=== PATIENT | female | born 1955 | race Caucasian/White ===

== ENCOUNTER 2019-04-30 14:26 | Inpatient (IN) | payer MEDICAID ==
[~2019-04-30] VITALS: Ht 165.1 cm; Wt 139.7 kg
[2019-04-30] MEDS ORDERED: ALBUTEROL SULF 2.5 MG/0.5ML(0.5%) NEB SOLN HHN ONE (16:00)
[2019-04-30] MEDS ORDERED: methylPREDNISolone SOD SUCC 125 MG/2 ML VL IV ONE (16:00)
[2019-04-30] MEDS ORDERED: IPRATROPIUM BROM 0.5 MG/2.5ML INH SOL HHN ONE (16:00)
[2019-04-30 16:43] LABS: Basophils # (auto) 0.1 uL; Basophils % (auto) 0.6 % (0.0-2.0); Eosinophils # (auto) 0.1 uL; Eosinophils % (auto) 0.8 % (0.0-7.0); Hematocrit 42.6 % (36.0-46.0); Hemoglobin 14.2 g/dL (12.2-16.2); Lymphocytes # (auto) 1.4 uL; Lymphocytes % (auto) 13.3 % (10.0-50.0); Mean Corpuscular Hemoglobin 28.7 pg (28.0-32.0); Mean Corpuscular Hgb Conc. 33.4 g/dL (32.0-36.0); Mean Corpuscular Volume 86.1 fL (80.0-100.0); Monocytes # (auto) 0.8 uL; Monocytes % (auto) 7.8 % (0.0-12.0); Neutrophils # (auto) 8.1 uL; Neutrophils % (auto) 77.5 % (37.0-80.0); Platelet Count (auto) 258 10^3/uL (140-450); Red Blood Cells 4.94 10^6/uL (4.0-5.20); Red Cell Distribution Width 15.5 % (11.8-14.3); White Blood Cell 10.4 10^3/uL (4.4-10.8)
[2019-04-30 17:02] LABS: Albumin 3.4 g/dL (3.4-5.0); Anion Gap 8 (5-15); Blood Urea Nitrogen 28 mg/dL (7-18); Calcium 8.8 mg/dL (8.5-10.1); Carbon Dioxide 29 mmol/L (21-32); Chloride 97 mmol/L (98-107); Potassium 4.3 mmol/L (3.5-5.1); Sodium 134 mmol/L (136-145)
[2019-04-30 17:08] LABS: Alanine Aminotransferase 30 U/L (13-56); Alkaline Phosphatase 113 U/L (45-117); Aspartate Aminotransferase 23 U/L (15-37); BUN/Creatinine Ratio 22.4; Bilirubin, Total 0.5 mg/dL (0.2-1.0); GFR African American 55 mL/min; GFR Non-African American 46 mL/min; Total Protein 7.4 g/dL (6.4-8.2)
[2019-04-30 17:21] LABS: Glucose 410 mg/dL (74-106)
[2019-04-30] MEDS ORDERED: TEMAZEPAM 15 MG CAP PO PRN (21:00)
[2019-04-30] MEDS ORDERED: cefTRIAXone 1GM/50ML D5W 50 ML IV ONE (21:00)
[2019-04-30] MEDS ORDERED: guaiFENesin-DM 100/10mg/5ml SYR PO PRN (21:00)
[2019-04-30] MEDS ORDERED: DEXTROSE (50%) 50ML SYRG IV PRN (21:00)
[2019-04-30] MEDS ORDERED: ONDANSETRON HCL 4 MG/2 ML VIAL IV PRN (21:00)
[2019-04-30] MEDS ORDERED: MORPHINE SULF INJ 2 MG/ML SYRINGE 1ML IV PRN (21:30)
[2019-04-30] MEDS ORDERED: NITROGLYCERIN 0.4 MG SL TAB SL PRN (21:30)
[2019-04-30] MEDS: ATORVASTATIN 20 MG TAB PO SCH (22:01)
[2019-04-30 23:15] VITALS: BP 137/70
--- NOTE | 2019-04-30 23:15 | NUR ---
Telemetry admit from [facility] admitted to Telemetry unit. Patient oriented to Edna Batista, primary RN, unit, room, bed, and unit policies regarding patient care. Patient now on continuous telemetry monitoring, tele box # [id number] and telemetry reading on arrival to unit is sinus tachycardia, HR of 104. Patient is on room air. Respirations even and unlabored. Patient has no S/S of SOB/distress or pain. Patient able to ambulate independently, steady gait. Patient encouraged to call if they need something. All questions and concerns addressed, patient verbalized understanding.
[2019-04-30 23:33] VITALS: BP 120/55
[2019-05-01] MEDS ORDERED: ALBUTEROL SULF 2.5 MG/0.5ML(0.5%) NEB SOLN NEB SCH
[2019-05-01] MEDS: InsuLIN REG 1unit/0.01ml Soln (100units/ml) SC SCH ×4 (00:07→17:27)
[2019-05-01] MEDS: ACCU-CHEK COMFORT CURVE STRIP VI SCH ×4 (00:07→17:22)
--- NOTE | 2019-05-01 00:50 | NUR ---
[facility] SWAB SENT.
--- NOTE | 2019-05-01 02:00 | NUR ---
HOSPITALIST PAGED REGARDING PATIENT REQUESTING 50 UNITS OF LANTUS IN THE MORNING AND AT NIGHT. PATIENT STATES SHE TAKES THIS AT HOME AND DOES NOT WANT HER BLOOD SUGAR TO GET HIGH. Addendum: 05/01/19 at 0306 by Edna Batista RN AWAITING CALLBACK.
--- NOTE | 2019-05-01 02:42 | NUR ---
CALLBACK RECEIVED FROM AGNES MAE. NO NEW ORDERS RECEIVED.
--- NOTE | 2019-05-01 04:12 | NUR ---
RAPID INFLUENZA A AND B SWAB SENT.
[2019-05-01] MEDS ORDERED: PNEUMOCOCCAL VACC POLYS 25 MCG/0.5 ML VIAL IM ONE (04:45)
[2019-05-01 05:00] VITALS: BP 112/46
[2019-05-01] MEDS ORDERED: LEVO750T64 PO (05:02)
[2019-05-01] MEDS ORDERED: GABA300C10 PO (05:02)
[2019-05-01] MEDS ORDERED: NORT25CA PO (05:02)
[2019-05-01] MEDS ORDERED: LEVO75TA6 PO (05:02)
[2019-05-01] MEDS ORDERED: LISI-285 PO (05:02)
[2019-05-01] MEDS ORDERED: SIMV10TA84 PO (05:02)
[2019-05-01 05:55] LABS: Basophils # (auto) 0 uL; Basophils % (auto) 0.2 % (0.0-2.0); Eosinophils # (auto) 0 uL; Hemoglobin 13.1 g/dL (12.2-16.2); Lymphocytes # (auto) 0.7 uL; Lymphocytes % (auto) 7.6 % (10.0-50.0); Mean Corpuscular Hemoglobin 28.2 pg (28.0-32.0); Mean Corpuscular Hgb Conc. 32.8 g/dL (32.0-36.0); Monocytes # (auto) 0.1 uL; Monocytes % (auto) 1.6 % (0.0-12.0); Neutrophils # (auto) 8.7 uL; Neutrophils % (auto) 90.6 % (37.0-80.0); Nucleated Red Blood Cells % 0.1 %; Platelet Count (auto) 214 10^3/uL (140-450); Red Blood Cells 4.65 10^6/uL (4.0-5.20); Red Cell Distribution Width 15.3 % (11.8-14.3); White Blood Cell 9.6 10^3/uL (4.4-10.8)
[2019-05-01] MEDS ORDERED: INSUINJ3 SC (05:59)
[2019-05-01] MEDS ORDERED: [UNRECOGNIZED DRUG - CODE] PO (05:59)
[2019-05-01] MEDS ORDERED: INSLANTI SC (05:59)
[2019-05-01 06:14] LABS: Calcium 8.9 mg/dL (8.5-10.1)
[2019-05-01] MEDS: LEVOTHYROXINE SODIUM 25 MCG TAB PO SCH (06:14)
[2019-05-01 06:17] LABS: BUN/Creatinine Ratio 22.5
[2019-05-01] MEDS: ACETAMINOPHEN 325 MG TAB PO PRN ×2 (06:25→11:44)
--- NOTE | 2019-05-01 07:00 | NUR ---
CLOSING NOTE Patient is on room air. Respirations even and unlabored. Patient has no S/S of SOB/distress.
[2019-05-01] MEDS ORDERED: INSREG3 IV (07:11)
[2019-05-01] MEDS ORDERED: ALBU2TAB4 INH (07:11)
[2019-05-01] MEDS ORDERED: BECLPOW12 IN (07:11)
[2019-05-01] MEDS ORDERED: CHOL20007 PO (07:11)
--- NOTE | 2019-05-01 07:40 | NUR ---
Opening Note Assumed pt care from [facility] nurse. Pt is a.ox4 with no s/s of distress or SOB. Pt is currently sitting at edge of bed eating breakfast with no complaints at this time. Pt is slightly wheezy and has a cough. Discussed POC wit pt; pt verbalized understanding. Safety measures maintained with call light within reach, bed in lowest position and side rails up. Will continue to monitor for changes q1hr and prn.
[2019-05-01] MEDS: IPRATROPIUM BROM 0.5 MG/2.5ML INH SOL NEB SCH ×4 (07:49→22:39)
[2019-05-01] MEDS: ALBUTEROL SULF 2.5 MG/0.5ML(0.5%) NEB SOLN NEB SCH ×4 (07:49→22:39)
[2019-05-01] MEDS: cefTRIAXone 1GM/50ML D5W 50 ML IV SCH (08:23)
[2019-05-01 09:00] VITALS: BP 130/61
[2019-05-01] MEDS: PANTOPRAZOLE 40 MG TAB PO SCH (09:36)
[2019-05-01] MEDS: LISINOPRIL 20 MG TAB PO SCH (09:36)
[2019-05-01] MEDS: HCTZ 25 MG TAB PO SCH (09:36)
[2019-05-01 13:00] VITALS: BP 119/70
--- NOTE | 2019-05-01 14:27 | NUR ---
Dr Moncada at Bedside MD to see pt. Requests that pt be allowed to show if she is sitting in shower, increase insulin sliding scale to aggressive, place pt on O2, as well as change breathing treatments to Q4. Orders read back and verified; will implement and follow through. Will continue to monitor.
[2019-05-01] MEDS ORDERED: DEXTROSE (50%) 50ML SYRG IV PRN (15:15)
[2019-05-01 17:35] VITALS: BP 136/70
[2019-05-01 20:05] VITALS: BP 147/59
--- NOTE | 2019-05-01 20:05 | NUR ---
Opening Shift Note Assumed care of patient, awake and alert. No S/S of distress/SOB or pain. Patient is on 2 liters of oxygen via nasal cannula. Respirations even and unlabored. Instructed on POC and to call for assist PRN, will continue to monitor for changes Q1hr and PRN.
[2019-05-01] MEDS: methylPREDNISolone SOD SUCC 40 MG/ML VL IV SCH (21:57)
[2019-05-01] MEDS: INSULIN LANTUS (GLARGINE) 1 /0.01ml (100units/ml) SC SCH (21:57)
[2019-05-01] MEDS: ATORVASTATIN 20 MG TAB PO SCH (21:57)
[2019-05-01 22:00] VITALS: BP 147/59
--- NOTE | 2019-05-01 23:40 | NUR ---
IV removal due to infiltration IV DC'd with clean sterile technique, catheter fully intact. Pressure dressing applied to site. Patient tolerated well.
--- NOTE | 2019-05-01 23:55 | NUR ---
IV insertion IV access obtained, via clean sterile technique by inserting 22 gauge catheter at left AC after 2 attempts. IV secured properly. No trauma to site. Patient tolerated well.
[2019-05-02] MEDS: ACCU-CHEK COMFORT CURVE STRIP VI SCH ×4 (00:28→18:02)
[2019-05-02] MEDS: InsuLIN REG 1unit/0.01ml Soln (100units/ml) SC SCH ×4 (00:28→18:03)
[2019-05-02 05:54] VITALS: BP 131/57
[2019-05-02] MEDS: ALBUTEROL SULF 2.5 MG/0.5ML(0.5%) NEB SOLN NEB SCH ×4 (06:20→20:04)
[2019-05-02] MEDS: IPRATROPIUM BROM 0.5 MG/2.5ML INH SOL NEB SCH ×4 (06:20→20:04)
[2019-05-02] MEDS: INSULIN LANTUS (GLARGINE) 1 /0.01ml (100units/ml) SC SCH ×2 (06:20→22:00)
[2019-05-02] MEDS: LEVOTHYROXINE SODIUM 25 MCG TAB PO SCH (06:20)
[2019-05-02] MEDS ORDERED: ASPI-404 PO (06:37)
--- NOTE | 2019-05-02 07:00 | NUR ---
CLOSING NOTE No S/S of distress/SOB or pain. Patient is on 2 liters of oxygen via nasal cannula. Respirations even and unlabored.
--- NOTE | 2019-05-02 08:15 | NUR ---
Opening Note Assumed care of patient, she is A & O x4, no s/s of distress. POC discussed. Bed is in lowest, locked position, call light within reach. Will continue to monitor Q1h and PRN .
[2019-05-02 09:00] VITALS: BP 123/50
[2019-05-02] MEDS: PANTOPRAZOLE 40 MG TAB PO SCH (10:22)
[2019-05-02] MEDS: cefTRIAXone 1GM/50ML D5W 50 ML IV SCH (10:22)
[2019-05-02] MEDS: LISINOPRIL 20 MG TAB PO SCH (10:23)
[2019-05-02] MEDS: HCTZ 25 MG TAB PO SCH (10:23)
[2019-05-02] MEDS: methylPREDNISolone SOD SUCC 40 MG/ML VL IV SCH ×2 (10:24→22:09)
[2019-05-02] MEDS: PROMETHAZINE W/CODEINE 5 ML ORAL SYRUP PO PRN (12:07)
[2019-05-02 13:00] VITALS: BP 114/55
[2019-05-02 17:00] VITALS: BP 123/74
--- NOTE | 2019-05-02 19:00 | NUR ---
Opening Shift Note Assumed care of patient, awake and alert. No S/S of distress/SOB or pain. Instructed on POC and to call for assist PRN, will continue to monitor for changes Q1hr and PRN.
[2019-05-02 22:00] VITALS: BP 129/53
[2019-05-02] MEDS: ATORVASTATIN 20 MG TAB PO SCH (22:10)
[2019-05-03] MEDS: IPRATROPIUM BROM 0.5 MG/2.5ML INH SOL NEB SCH ×3 (00:05→09:13)
[2019-05-03] MEDS: ALBUTEROL SULF 2.5 MG/0.5ML(0.5%) NEB SOLN NEB SCH ×3 (00:05→09:13)
[2019-05-03] MEDS: ACCU-CHEK COMFORT CURVE STRIP VI SCH ×3 (00:23→11:25)
[2019-05-03] MEDS: InsuLIN REG 1unit/0.01ml Soln (100units/ml) SC SCH ×3 (00:23→11:33)
[2019-05-03] MEDS: PROMETHAZINE W/CODEINE 5 ML ORAL SYRUP PO PRN ×2 (02:12→08:44)
[2019-05-03 05:00] VITALS: BP 139/59
[2019-05-03 06:05] LABS: Basophils # (auto) 0 uL; Basophils % (auto) 0.1 % (0.0-2.0); Eosinophils # (auto) 0 uL; Hematocrit 40.9 % (36.0-46.0); Hemoglobin 13.4 g/dL (12.2-16.2); Lymphocytes # (auto) 0.7 uL; Lymphocytes % (auto) 5.3 % (10.0-50.0); Mean Corpuscular Hemoglobin 28.1 pg (28.0-32.0); Mean Corpuscular Hgb Conc. 32.9 g/dL (32.0-36.0); Mean Corpuscular Volume 85.5 fL (80.0-100.0); Monocytes # (auto) 0.6 uL; Monocytes % (auto) 4.8 % (0.0-12.0); Neutrophils % (auto) 89.8 % (37.0-80.0); Nucleated Red Blood Cells % 0.1 %; Platelet Count (auto) 232 10^3/uL (140-450); Red Blood Cells 4.79 10^6/uL (4.0-5.20); Red Cell Distribution Width 15.6 % (11.8-14.3); White Blood Cell 12.3 10^3/uL (4.4-10.8)
[2019-05-03 06:22] LABS: Albumin 3.2 g/dL (3.4-5.0); Calcium 8.6 mg/dL (8.5-10.1); Potassium 4.2 mmol/L (3.5-5.1)
[2019-05-03 06:29] LABS: BUN/Creatinine Ratio 30.8; Bilirubin, Total 0.3 mg/dL (0.2-1.0)
[2019-05-03] MEDS: INSULIN LANTUS (GLARGINE) 1 /0.01ml (100units/ml) SC SCH (06:31)
[2019-05-03] MEDS: LEVOTHYROXINE SODIUM 25 MCG TAB PO SCH (06:41)
--- NOTE | 2019-05-03 07:22 | NUR ---
OPENING SHIFT NOTE Assumed care of patient from wood finisher RN. Patient is asleep in bed, no signs of distress notes. Patient is receiving oxygen at 2L/min via nasal cannula. Bed is locked, in the lowest position, side rails up x2 and call light is in reach. Will continue to monitor.
[2019-05-03] MEDS: cefTRIAXone 1GM/50ML D5W 50 ML IV SCH (08:44)
[2019-05-03 09:00] VITALS: BP 143/79
--- NOTE | 2019-05-03 09:13 | NUR ---
Respiratory note: SCHEDULED MED NEB TX NOT GIVEN. PATIENT STATED SHE DOES NOT NEED ONE AT THIS TIME. RN AT BEDSIDE. NO RESP DISTRESS NOTED. HR 81, RR 16, SPO2 95% ON ROOM AIR. BS ARE CLEAR.
[2019-05-03] MEDS: LISINOPRIL 20 MG TAB PO SCH (10:25)
[2019-05-03] MEDS: PANTOPRAZOLE 40 MG TAB PO SCH (10:25)
[2019-05-03] MEDS: HCTZ 25 MG TAB PO SCH (10:25)
--- NOTE | 2019-05-03 10:58 | NUR ---
IV removal IV DC'd with clean sterile technique, catheter fully intact. Pressure dressing applied to site. Patient tolerated well. IV insertion IV access obtained, via clean sterile technique by inserting 22 gauge catheter at right forearm after 4 attempts. IV secured properly. No trauma to site. Patient tolerated well.
[2019-05-03] MEDS: methylPREDNISolone SOD SUCC 40 MG/ML VL IV SCH (10:59)
[2019-05-03 13:00] VITALS: BP 142/64
[2019-05-03 13:31] VITALS: BP 142/64
--- NOTE | 2019-05-03 14:51 | NUR ---
DISCHARGE Discharge instructions given as ordered. Encourage to follow up with PMD as instructed. All questions and concerns addressed. Patient verbalized understanding. Medication reconciliation form completed and copy given to patient. Home medications held in Pharmacy returned to patient. IV removed with catheter intact, pressure dressing applied, Telemetry unit returned to ICU. Patient taken to vehicle via wheelchair with all personal belongings, accompanied by staff and family member. No distress noted at time of departure.
== END 2019-05-03 14:51 | disposition home or self-care (01) | DRG 133 ==
LOC: ER 14:26 → TELE 14:27 → TELE-WESTW 23:07
PROVIDERS: ADMIT Nurse Practitioner; ATTEND Internal Medicine
DX: J96.20 Acute and chronic respiratory failure, unspecified whether with hypoxia or hypercapnia (principal); E11.65 Type 2 diabetes mellitus with hyperglycemia; J45.901 Unspecified asthma with (acute) exacerbation; E66.01 Morbid (severe) obesity due to excess calories; E88.09 Other disorders of plasma-protein metabolism, not elsewhere classified; E03.9 Hypothyroidism, unspecified; I10 Essential (primary) hypertension; Z23 Encounter for immunization; Z91.19 Patient's noncompliance with other medical treatment and regimen; Z90.710 Acquired absence of both cervix and uterus; Z88.8 Allergy status to other drugs, medicaments and biological substances; Z68.43 Body mass index [BMI] 50.0-59.9, adult
CPT/HCPCS: 36415; 71046; 80048; 80053; 82962; 84484; 85025; 87081; 87804; 93005; 94640; 96365; 96375; G0378; J0696; J1815

== ENCOUNTER 2019-05-11 16:26 | Inpatient (IN) | payer MEDICAID ==
[~2019-05-11] VITALS: Ht 165.1 cm; Wt 137.2 kg
[~2019-05-11 16:26] MED LIST: ALBU2TAB4 INH; ASPI-404 PO; BECLPOW12 IN; CHOL20007 PO; GABA300C10 PO; INSLANTI SC; INSREG3 IV; LEVO750T64 PO; LEVO75TA6 PO; LISI-285 PO; NORT25CA PO; SIMV10TA84 PO; [UNRECOGNIZED DRUG - CODE] PO
[2019-05-11 17:27] LABS: Hematocrit 51.4 % (36.0-46.0); Hemoglobin 16.8 g/dL (12.2-16.2); Mean Corpuscular Hemoglobin 28.4 pg (28.0-32.0); Mean Corpuscular Hgb Conc. 32.8 g/dL (32.0-36.0); Mean Corpuscular Volume 86.6 fL (80.0-100.0); Platelet Count (auto) 263 10^3/uL (140-450); Red Blood Cells 5.93 10^6/uL (4.0-5.20); Red Cell Distribution Width 15.6 % (11.8-14.3); White Blood Cell 17.3 10^3/uL (4.4-10.8)
[2019-05-11 17:33] LABS: Basophils % (manual) 0 (0.0-2.0); Blast Cells 0; Metamyelocytes % 0; Myelocytes % 0; Promyelocytes % 0; Reactive Lymphocytes 0
[2019-05-11 17:39] LABS: INR 0.96 (0.9-1.15); Partial Thromboplastin Time 21.1 sec (23.64-32.05)
[2019-05-11 17:40] LABS: Albumin 3.4 g/dL (3.4-5.0); Calcium 9.5 mg/dL (8.5-10.1)
[2019-05-11 17:42] LABS: Band Neutrophils % (manual) 2; Eosinophils % (manual) 2 (0-7); Lymphocytes % (manual) 23 (10.0-50.0); Monocytes % (manual) 4 (0-12)
[2019-05-11 17:44] LABS: Lactic Acid w/Reflex 2.2 mmol/L (0.4-2.0)
[2019-05-11 17:44] LABS: BUN/Creatinine Ratio 20.1; Bilirubin, Total 0.6 mg/dL (0.2-1.0); Total Protein 7.5 g/dL (6.4-8.2)
[2019-05-11 17:46] LABS: Urine Bacteria NONE SEEN /hpf (None Seen); Urine Blood Negative /uL (Negative); Urine Hyaline Cast FEW /lpf (0 - 2); Urine Mucus FEW (None Seen); Urine Specific Gravity 1.025 (1.001-1.035); Urine WBC 1 /hpf (0 - 5)
[2019-05-11] MEDS ORDERED: VANCOMYCIN PER PHARMACY 1,000 MG IV SCH (19:00)
[2019-05-11] MEDS ORDERED: ACETAMINOPHEN 325 MG TAB PO PRN (19:00)
[2019-05-11] MEDS ORDERED: SODIUM CHLORIDE 0.9% 4,000 ML IV ONE (19:00)
[2019-05-11 19:57] LABS: Amylase 95 U/L (25-115); Lipase 873 U/L (73-393)
[2019-05-11] MEDS ORDERED: VANCOMYCIN 1GM/250ML 250 ML IV SCH (21:30)
[2019-05-11] MEDS: VANCOMYCIN 1GM/250ML 250 ML IV SCH (22:29)
[2019-05-11] MEDS ORDERED: ALBUTEROL SULF 2.5 MG/0.5ML(0.5%) NEB SOLN NEB ONE (23:15)
[2019-05-11] MEDS ORDERED: IPRATROPIUM BROM 0.5 MG/2.5ML INH SOL NEB ONE (23:15)
[2019-05-12] MEDS ORDERED: PIPERACILLIN-TAZOB 3.375GM 100 ML IV SCH
[2019-05-12] MEDS ORDERED: ACETAMINOPHEN 325 MG TAB PO PRN (00:45)
[2019-05-12] MEDS ORDERED: VANCOMYCIN PER PHARMACY 0 MG IV SCH (00:45)
[2019-05-12] MEDS ORDERED: DEXTROSE (50%) 50ML SYRG IV PRN ×2 (00:45→13:15)
[2019-05-12] MEDS ORDERED: MORPHINE SULF INJ 2 MG/ML SYRINGE 1ML IV PRN (01:00)
[2019-05-12] MEDS ORDERED: NITROGLYCERIN 0.4 MG SL TAB SL PRN (01:00)
[2019-05-12 01:14] VITALS: BP 104/60
[2019-05-12] MEDS: TEMAZEPAM 15 MG CAP PO PRN ×2 (01:18→21:15)
[2019-05-12] MEDS: SODIUM CHLORIDE 0.9% 1,000 ML IV SCH ×2 (02:52→13:15)
[2019-05-12] MEDS: ACCU-CHEK COMFORT CURVE STRIP VI SCH ×4 (06:00→22:19)
[2019-05-12] MEDS: IPRATROPIUM BROM 0.5 MG/2.5ML INH SOL NEB SCH ×4 (06:19→23:44)
[2019-05-12] MEDS: ALBUTEROL SULF 2.5 MG/0.5ML(0.5%) NEB SOLN NEB SCH ×4 (06:19→23:43)
[2019-05-12] MEDS: PIPERACILLIN-TAZOB 2.25GM 50 ML IV SCH ×3 (06:33→21:16)
[2019-05-12] MEDS: GABAPENTIN 300 MG CAP PO SCH ×3 (06:35→21:15)
[2019-05-12] MEDS: InsuLIN REG 1unit/0.01ml Soln (100units/ml) SC SCH ×4 (06:35→22:19)
[2019-05-12] MEDS: LEVOTHYROXINE SODIUM 25 MCG TAB PO SCH (06:36)
[2019-05-12 09:00] VITALS: BP 134/64
[2019-05-12] MEDS: VANCOMYCIN 1GM/250ML 250 ML IV SCH ×2 (09:59→22:19)
[2019-05-12] MEDS: ASPirin 81 mg TAB PO SCH (09:59)
[2019-05-12] MEDS: PANTOPRAZOLE 40 MG TAB PO SCH (10:00)
[2019-05-12 13:00] VITALS: BP 121/70
[2019-05-12 17:00] VITALS: BP 111/77
[2019-05-12] MEDS: ATORVASTATIN 20 MG TAB PO SCH (21:15)
[2019-05-12] MEDS: methylPREDNISolone SOD SUCC 40 MG/ML VL IV SCH (21:20)
[2019-05-12 22:00] VITALS: BP 121/64
[2019-05-12] MEDS: INSULIN LANTUS (GLARGINE) 1 /0.01ml (100units/ml) SC SCH (22:18)
[2019-05-13] MEDS: SODIUM CHLORIDE 0.9% 1,000 ML IV SCH (04:33)
[2019-05-13 05:00] VITALS: BP 117/68
[2019-05-13] MEDS: GABAPENTIN 300 MG CAP PO SCH ×3 (05:47→22:01)
[2019-05-13] MEDS: PIPERACILLIN-TAZOB 2.25GM 50 ML IV SCH (05:47)
[2019-05-13] MEDS: InsuLIN REG 1unit/0.01ml Soln (100units/ml) SC SCH ×3 (06:35→17:40)
[2019-05-13] MEDS: ACCU-CHEK COMFORT CURVE STRIP VI SCH ×4 (06:35→22:01)
[2019-05-13] MEDS: LEVOTHYROXINE SODIUM 25 MCG TAB PO SCH (06:36)
[2019-05-13] MEDS: IPRATROPIUM BROM 0.5 MG/2.5ML INH SOL NEB SCH ×4 (06:40→22:37)
[2019-05-13] MEDS: ALBUTEROL SULF 2.5 MG/0.5ML(0.5%) NEB SOLN NEB SCH ×4 (06:40→22:37)
[2019-05-13 06:41] LABS: Basophils # (auto) 0 uL; Basophils % (auto) 0.1 % (0.0-2.0); Eosinophils # (auto) 0 uL; Eosinophils % (auto) 0.1 % (0.0-7.0); Hematocrit 40.7 % (36.0-46.0); Hemoglobin 13.6 g/dL (12.2-16.2); Lymphocytes # (auto) 0.5 uL; Lymphocytes % (auto) 7.1 % (10.0-50.0); Mean Corpuscular Hemoglobin 28.9 pg (28.0-32.0); Mean Corpuscular Hgb Conc. 33.3 g/dL (32.0-36.0); Mean Corpuscular Volume 86.9 fL (80.0-100.0); Monocytes # (auto) 0.1 uL; Monocytes % (auto) 1.5 % (0.0-12.0); Neutrophils # (auto) 6.9 uL; Neutrophils % (auto) 91.2 % (37.0-80.0); Platelet Count (auto) 152 10^3/uL (140-450); Red Blood Cells 4.69 10^6/uL (4.0-5.20); Red Cell Distribution Width 15.7 % (11.8-14.3); White Blood Cell 7.6 10^3/uL (4.4-10.8)
[2019-05-13 07:05] LABS: Albumin 2.7 g/dL (3.4-5.0); Calcium 8.6 mg/dL (8.5-10.1); Potassium 5.2 mmol/L (3.5-5.1)
[2019-05-13 07:09] LABS: BUN/Creatinine Ratio 14.8; Bilirubin, Total 0.6 mg/dL (0.2-1.0); Total Protein 5.9 g/dL (6.4-8.2)
[2019-05-13 09:00] VITALS: BP 129/61
[2019-05-13] MEDS: methylPREDNISolone SOD SUCC 40 MG/ML VL IV SCH ×2 (09:14→22:00)
[2019-05-13] MEDS: INSULIN LANTUS (GLARGINE) 1 /0.01ml (100units/ml) SC SCH (09:15)
[2019-05-13] MEDS: PANTOPRAZOLE 40 MG TAB PO SCH (09:15)
[2019-05-13] MEDS: ASPirin 81 mg TAB PO SCH (09:15)
[2019-05-13] MEDS: VANCOMYCIN 1GM/250ML 250 ML IV SCH (09:15)
[2019-05-13] MEDS: PIPERACILLIN-TAZOB 3.375GM 100 ML IV SCH ×2 (12:00→17:39)
[2019-05-13 13:00] VITALS: BP 127/59
[2019-05-13 16:47] VITALS: BP 131/64
[2019-05-13] MEDS: BUDESONIDE (INHALATION) 0.5 MG/2 ML NEB NEB SCH (18:02)
[2019-05-13 21:41] VITALS: BP 111/74
[2019-05-13] MEDS: ATORVASTATIN 20 MG TAB PO SCH (22:01)
[2019-05-13] MEDS: TEMAZEPAM 15 MG CAP PO PRN (22:02)
[2019-05-14] VITALS (7 sets, daily range): BP systolic 96–134; BP diastolic 53–59
[2019-05-14] MEDS: InsuLIN REG 1unit/0.01ml Soln (100units/ml) SC SCH ×5 (03:28→22:31)
[2019-05-14] MEDS: INSULIN LANTUS (GLARGINE) 1 /0.01ml (100units/ml) SC SCH ×3 (03:28→22:30)
[2019-05-14] MEDS: PIPERACILLIN-TAZOB 3.375GM 100 ML IV SCH ×4 (03:29→18:19)
[2019-05-14] MEDS: ACCU-CHEK COMFORT CURVE STRIP VI SCH ×4 (05:36→22:31)
[2019-05-14] MEDS: GABAPENTIN 300 MG CAP PO SCH ×3 (05:58→22:30)
[2019-05-14] MEDS: LEVOTHYROXINE SODIUM 25 MCG TAB PO SCH (05:59)
[2019-05-14 06:02] LABS: Basophils # (auto) 0 uL; Basophils % (auto) 0.2 % (0.0-2.0); Eosinophils # (auto) 0 uL; Hematocrit 41.1 % (36.0-46.0); Hemoglobin 13.4 g/dL (12.2-16.2); Lymphocytes # (auto) 0.6 uL; Lymphocytes % (auto) 4.1 % (10.0-50.0); Mean Corpuscular Hemoglobin 28.7 pg (28.0-32.0); Mean Corpuscular Hgb Conc. 32.6 g/dL (32.0-36.0); Mean Corpuscular Volume 87.8 fL (80.0-100.0); Monocytes # (auto) 0.3 uL; Monocytes % (auto) 2.4 % (0.0-12.0); Neutrophils # (auto) 12.8 uL; Neutrophils % (auto) 93.3 % (37.0-80.0); Platelet Count (auto) 170 10^3/uL (140-450); Red Blood Cells 4.68 10^6/uL (4.0-5.20); Red Cell Distribution Width 16.1 % (11.8-14.3); White Blood Cell 13.7 10^3/uL (4.4-10.8)
[2019-05-14] MEDS: IPRATROPIUM BROM 0.5 MG/2.5ML INH SOL NEB SCH ×4 (06:13→23:59)
[2019-05-14] MEDS: BUDESONIDE (INHALATION) 0.5 MG/2 ML NEB NEB SCH ×2 (06:13→18:35)
[2019-05-14] MEDS: ALBUTEROL SULF 2.5 MG/0.5ML(0.5%) NEB SOLN NEB SCH ×4 (06:14→23:59)
[2019-05-14 06:45] LABS: Potassium 4.5 mmol/L (3.5-5.1)
[2019-05-14 07:07] LABS: Albumin 2.8 g/dL (3.4-5.0); BUN/Creatinine Ratio 16.8; Bilirubin, Total 0.6 mg/dL (0.2-1.0); Calcium 8.7 mg/dL (8.5-10.1); Total Protein 6.4 g/dL (6.4-8.2)
[2019-05-14] MEDS: methylPREDNISolone SOD SUCC 40 MG/ML VL IV SCH ×2 (09:16→22:30)
[2019-05-14] MEDS: PANTOPRAZOLE 40 MG TAB PO SCH (09:16)
[2019-05-14] MEDS: ASPirin 81 mg TAB PO SCH (09:16)
[2019-05-14] MEDS ORDERED: INSULIN LANTUS (GLARGINE) 1 /0.01ml (100units/ml) SC ONE (10:30)
[2019-05-14] MEDS: glipiZIDE 5 MG TAB PO SCH (18:18)
[2019-05-14] MEDS: ATORVASTATIN 20 MG TAB PO SCH (22:30)
[2019-05-15] MEDS: PIPERACILLIN-TAZOB 3.375GM 100 ML IV SCH ×5 (00:30→23:50)
[2019-05-15] MEDS: TEMAZEPAM 15 MG CAP PO PRN (00:30)
[2019-05-15 05:00] VITALS: BP 124/61
[2019-05-15 06:47] LABS: Albumin 2.8 g/dL (3.4-5.0); Calcium 8.6 mg/dL (8.5-10.1); Potassium 4.3 mmol/L (3.5-5.1)
[2019-05-15] MEDS: glipiZIDE 5 MG TAB PO SCH ×2 (06:50→18:15)
[2019-05-15] MEDS: GABAPENTIN 300 MG CAP PO SCH ×3 (06:50→21:58)
[2019-05-15] MEDS: LEVOTHYROXINE SODIUM 25 MCG TAB PO SCH (06:51)
[2019-05-15] MEDS: ACCU-CHEK COMFORT CURVE STRIP VI SCH ×4 (06:51→21:58)
[2019-05-15] MEDS: INSULIN LANTUS (GLARGINE) 1 /0.01ml (100units/ml) SC SCH ×2 (06:51→21:59)
[2019-05-15] MEDS: InsuLIN REG 1unit/0.01ml Soln (100units/ml) SC SCH ×4 (06:51→21:59)
[2019-05-15 06:52] LABS: Bilirubin, Total 0.5 mg/dL (0.2-1.0)
[2019-05-15] MEDS: ALBUTEROL SULF 2.5 MG/0.5ML(0.5%) NEB SOLN NEB SCH ×3 (07:07→19:47)
[2019-05-15] MEDS: IPRATROPIUM BROM 0.5 MG/2.5ML INH SOL NEB SCH ×3 (07:07→19:47)
[2019-05-15] MEDS: BUDESONIDE (INHALATION) 0.5 MG/2 ML NEB NEB SCH ×2 (07:08→19:47)
[2019-05-15 07:15] LABS: Basophils # (auto) 0 uL; Eosinophils # (auto) 0 uL; Hematocrit 38.6 % (36.0-46.0); Hemoglobin 12.7 g/dL (12.2-16.2); Lymphocytes # (auto) 0.8 uL; Lymphocytes % (auto) 5.5 % (10.0-50.0); Mean Corpuscular Hemoglobin 28.4 pg (28.0-32.0); Mean Corpuscular Hgb Conc. 32.9 g/dL (32.0-36.0); Mean Corpuscular Volume 86.4 fL (80.0-100.0); Monocytes # (auto) 0.6 uL; Neutrophils # (auto) 12.6 uL; Neutrophils % (auto) 90.5 % (37.0-80.0); Nucleated Red Blood Cells % 0.2 %; Platelet Count (auto) 158 10^3/uL (140-450); Red Blood Cells 4.47 10^6/uL (4.0-5.20); Red Cell Distribution Width 15.9 % (11.8-14.3); White Blood Cell 13.9 10^3/uL (4.4-10.8)
[2019-05-15 09:18] VITALS: BP 135/63
[2019-05-15] MEDS: methylPREDNISolone SOD SUCC 40 MG/ML VL IV SCH ×2 (10:25→21:58)
[2019-05-15] MEDS: ASPirin 81 mg TAB PO SCH (10:25)
[2019-05-15] MEDS: PANTOPRAZOLE 40 MG TAB PO SCH (10:25)
[2019-05-15 13:00] VITALS: BP 111/48
[2019-05-15 16:43] VITALS: BP 126/79
[2019-05-15 21:30] VITALS: BP 152/64
[2019-05-15] MEDS: ATORVASTATIN 20 MG TAB PO SCH (21:58)
[2019-05-16] MEDS: ALBUTEROL SULF 2.5 MG/0.5ML(0.5%) NEB SOLN NEB SCH ×5 (00:45→23:36)
[2019-05-16] MEDS: IPRATROPIUM BROM 0.5 MG/2.5ML INH SOL NEB SCH ×5 (00:45→23:36)
[2019-05-16] MEDS: TEMAZEPAM 15 MG CAP PO PRN (01:08)
[2019-05-16 05:41] VITALS: BP 119/56
[2019-05-16 06:06] LABS: Basophils # (auto) 0 uL; Basophils % (auto) 0.1 % (0.0-2.0); Eosinophils # (auto) 0 uL; Hematocrit 40.5 % (36.0-46.0); Hemoglobin 13.5 g/dL (12.2-16.2); Lymphocytes # (auto) 0.6 uL; Lymphocytes % (auto) 6.3 % (10.0-50.0); Mean Corpuscular Hemoglobin 29.2 pg (28.0-32.0); Mean Corpuscular Hgb Conc. 33.3 g/dL (32.0-36.0); Mean Corpuscular Volume 87.6 fL (80.0-100.0); Monocytes # (auto) 0.5 uL; Monocytes % (auto) 4.5 % (0.0-12.0); Neutrophils # (auto) 9.2 uL; Neutrophils % (auto) 89.1 % (37.0-80.0); Platelet Count (auto) 141 10^3/uL (140-450); Red Blood Cells 4.62 10^6/uL (4.0-5.20); Red Cell Distribution Width 16.1 % (11.8-14.3); White Blood Cell 10.3 10^3/uL (4.4-10.8)
[2019-05-16 06:20] LABS: Potassium 4.8 mmol/L (3.5-5.1)
[2019-05-16 06:29] LABS: Albumin 2.8 g/dL (3.4-5.0); BUN/Creatinine Ratio 20.2; Bilirubin, Total 0.5 mg/dL (0.2-1.0); Calcium 8.7 mg/dL (8.5-10.1); Total Protein 6.2 g/dL (6.4-8.2)
[2019-05-16] MEDS: PIPERACILLIN-TAZOB 3.375GM 100 ML IV SCH ×4 (06:33→23:23)
[2019-05-16] MEDS: GABAPENTIN 300 MG CAP PO SCH ×3 (06:33→21:35)
[2019-05-16] MEDS: LEVOTHYROXINE SODIUM 25 MCG TAB PO SCH (06:33)
[2019-05-16] MEDS: INSULIN LANTUS (GLARGINE) 1 /0.01ml (100units/ml) SC SCH ×2 (06:34→21:36)
[2019-05-16] MEDS: glipiZIDE 5 MG TAB PO SCH ×2 (06:34→17:46)
[2019-05-16] MEDS: InsuLIN REG 1unit/0.01ml Soln (100units/ml) SC SCH ×4 (06:34→21:35)
[2019-05-16] MEDS: ACCU-CHEK COMFORT CURVE STRIP VI SCH ×4 (06:34→21:36)
[2019-05-16] MEDS: BUDESONIDE (INHALATION) 0.5 MG/2 ML NEB NEB SCH ×2 (06:48→18:14)
[2019-05-16] MEDS: PANTOPRAZOLE 40 MG TAB PO SCH (09:35)
[2019-05-16] MEDS: methylPREDNISolone SOD SUCC 40 MG/ML VL IV SCH ×2 (09:35→21:34)
[2019-05-16] MEDS: ASPirin 81 mg TAB PO SCH (09:35)
[2019-05-16 09:39] VITALS: BP 145/75
[2019-05-16] MEDS: PROMETHAZINE W/CODEINE 5 ML ORAL SYRUP PO PRN (14:53)
[2019-05-16 14:54] VITALS: BP 146/68
[2019-05-16 16:45] VITALS: BP 108/62
[2019-05-16] MEDS: ATORVASTATIN 20 MG TAB PO SCH (21:35)
[2019-05-16 21:47] VITALS: BP 109/47
[2019-05-17] MEDS: TEMAZEPAM 15 MG CAP PO PRN
[2019-05-17] MEDS: PROMETHAZINE W/CODEINE 5 ML ORAL SYRUP PO PRN (04:34)
[2019-05-17 05:28] VITALS: BP 128/63
[2019-05-17] MEDS: GABAPENTIN 300 MG CAP PO SCH ×3 (05:32→21:59)
[2019-05-17] MEDS: PIPERACILLIN-TAZOB 3.375GM 100 ML IV SCH ×4 (05:32→23:35)
[2019-05-17] MEDS: INSULIN LANTUS (GLARGINE) 1 /0.01ml (100units/ml) SC SCH ×2 (05:41→22:00)
[2019-05-17] MEDS: ALBUTEROL SULF 2.5 MG/0.5ML(0.5%) NEB SOLN NEB SCH ×3 (06:10→19:15)
[2019-05-17] MEDS: IPRATROPIUM BROM 0.5 MG/2.5ML INH SOL NEB SCH ×3 (06:10→19:15)
[2019-05-17] MEDS: BUDESONIDE (INHALATION) 0.5 MG/2 ML NEB NEB SCH ×2 (06:10→19:15)
[2019-05-17] MEDS: ACCU-CHEK COMFORT CURVE STRIP VI SCH ×4 (06:29→22:00)
[2019-05-17] MEDS: InsuLIN REG 1unit/0.01ml Soln (100units/ml) SC SCH ×4 (06:29→22:01)
[2019-05-17] MEDS: glipiZIDE 5 MG TAB PO SCH ×2 (06:30→17:55)
[2019-05-17] MEDS: LEVOTHYROXINE SODIUM 25 MCG TAB PO SCH (06:30)
[2019-05-17 06:51] LABS: Calcium 8.4 mg/dL (8.5-10.1); Potassium 4.8 mmol/L (3.5-5.1)
[2019-05-17 06:54] LABS: BUN/Creatinine Ratio 19.9
[2019-05-17 09:00] VITALS: BP 126/62
[2019-05-17] MEDS: methylPREDNISolone SOD SUCC 40 MG/ML VL IV SCH ×2 (09:36→21:59)
[2019-05-17] MEDS: PANTOPRAZOLE 40 MG TAB PO SCH (09:36)
[2019-05-17] MEDS: ASPirin 81 mg TAB PO SCH (09:37)
[2019-05-17 13:00] VITALS: BP 116/65
[2019-05-17] MEDS ORDERED: MONTELUKAST SODIUM 10 MG TAB PO ONE (13:45)
[2019-05-17 17:00] VITALS: BP 121/57
[2019-05-17 21:20] VITALS: BP 121/57
[2019-05-17] MEDS: MONTELUKAST SODIUM 10 MG TAB PO SCH (21:59)
[2019-05-17 22:00] VITALS: BP 123/57
[2019-05-17] MEDS: ATORVASTATIN 20 MG TAB PO SCH (22:00)
[2019-05-18] MEDS: IPRATROPIUM BROM 0.5 MG/2.5ML INH SOL NEB SCH ×4 (00:10→18:56)
[2019-05-18] MEDS: ALBUTEROL SULF 2.5 MG/0.5ML(0.5%) NEB SOLN NEB SCH ×4 (00:10→18:56)
[2019-05-18] MEDS: PROMETHAZINE W/CODEINE 5 ML ORAL SYRUP PO PRN (00:30)
[2019-05-18] MEDS: TEMAZEPAM 15 MG CAP PO PRN (00:31)
[2019-05-18 05:15] LABS: Hemoglobin 13.3 g/dL (12.2-16.2); Mean Corpuscular Hemoglobin 28.9 pg (28.0-32.0); Mean Corpuscular Hgb Conc. 33.3 g/dL (32.0-36.0); Mean Corpuscular Volume 86.8 fL (80.0-100.0); Platelet Count (auto) 129 10^3/uL (140-450); Red Blood Cells 4.61 10^6/uL (4.0-5.20); White Blood Cell 10.1 10^3/uL (4.4-10.8)
[2019-05-18 05:32] LABS: Albumin 2.9 g/dL (3.4-5.0); Calcium 8.7 mg/dL (8.5-10.1); Potassium 4.4 mmol/L (3.5-5.1)
[2019-05-18 05:34] LABS: Basophils % (manual) 0 (0.0-2.0); Blast Cells 0; Eosinophils % (manual) 0 (0-7); Metamyelocytes % 0; Myelocytes % 0; Promyelocytes % 0; Reactive Lymphocytes 0
[2019-05-18 05:36] LABS: Bilirubin, Total 0.5 mg/dL (0.2-1.0)
[2019-05-18 05:37] LABS: BUN/Creatinine Ratio 19.3
[2019-05-18] MEDS: GABAPENTIN 300 MG CAP PO SCH ×3 (05:37→22:32)
[2019-05-18] MEDS: PIPERACILLIN-TAZOB 3.375GM 100 ML IV SCH ×3 (05:38→18:57)
[2019-05-18] MEDS: INSULIN LANTUS (GLARGINE) 1 /0.01ml (100units/ml) SC SCH ×2 (05:47→22:32)
[2019-05-18] MEDS: BUDESONIDE (INHALATION) 0.5 MG/2 ML NEB NEB SCH ×2 (05:56→18:56)
[2019-05-18 06:00] VITALS: BP 106/64
[2019-05-18] MEDS: glipiZIDE 5 MG TAB PO SCH ×2 (06:21→18:57)
[2019-05-18] MEDS: LEVOTHYROXINE SODIUM 25 MCG TAB PO SCH (06:22)
[2019-05-18] MEDS: ACCU-CHEK COMFORT CURVE STRIP VI SCH ×4 (06:22→22:33)
[2019-05-18] MEDS: InsuLIN REG 1unit/0.01ml Soln (100units/ml) SC SCH ×4 (06:23→22:00)
[2019-05-18 07:18] LABS: Band Neutrophils % (manual) 1; Lymphocytes % (manual) 6 (10.0-50.0); Monocytes % (manual) 5 (0-12)
[2019-05-18] MEDS: ASPirin 81 mg TAB PO SCH (09:22)
[2019-05-18] MEDS: methylPREDNISolone SOD SUCC 40 MG/ML VL IV SCH ×2 (09:22→22:32)
[2019-05-18] MEDS: PANTOPRAZOLE 40 MG TAB PO SCH (09:22)
[2019-05-18 09:42] VITALS: BP 104/64
[2019-05-18 12:59] VITALS: BP 107/66
[2019-05-18 16:48] VITALS: BP 119/58
[2019-05-18 20:00] VITALS: BP 116/69
[2019-05-18 22:00] VITALS: BP 116/69
[2019-05-18] MEDS: MONTELUKAST SODIUM 10 MG TAB PO SCH (22:32)
[2019-05-18] MEDS: ATORVASTATIN 20 MG TAB PO SCH (22:32)
[2019-05-19] MEDS: TEMAZEPAM 15 MG CAP PO PRN (00:02)
[2019-05-19] MEDS: PIPERACILLIN-TAZOB 3.375GM 100 ML IV SCH ×4 (00:02→18:16)
[2019-05-19] MEDS: IPRATROPIUM BROM 0.5 MG/2.5ML INH SOL NEB SCH ×4 (00:14→18:44)
[2019-05-19] MEDS: ALBUTEROL SULF 2.5 MG/0.5ML(0.5%) NEB SOLN NEB SCH ×4 (00:14→18:44)
[2019-05-19] MEDS: PROMETHAZINE W/CODEINE 5 ML ORAL SYRUP PO PRN (00:26)
[2019-05-19 05:00] VITALS: BP 125/66
[2019-05-19] MEDS: GABAPENTIN 300 MG CAP PO SCH ×3 (06:22→22:41)
[2019-05-19] MEDS: INSULIN LANTUS (GLARGINE) 1 /0.01ml (100units/ml) SC SCH ×2 (06:22→22:41)
[2019-05-19] MEDS: glipiZIDE 5 MG TAB PO SCH ×2 (06:23→18:16)
[2019-05-19] MEDS: LEVOTHYROXINE SODIUM 25 MCG TAB PO SCH (06:23)
[2019-05-19] MEDS: InsuLIN REG 1unit/0.01ml Soln (100units/ml) SC SCH ×4 (06:23→22:40)
[2019-05-19] MEDS: ACCU-CHEK COMFORT CURVE STRIP VI SCH ×4 (06:23→22:41)
[2019-05-19] MEDS: BUDESONIDE (INHALATION) 0.5 MG/2 ML NEB NEB SCH ×2 (06:23→18:44)
[2019-05-19 07:07] LABS: Calcium 8.5 mg/dL (8.5-10.1); Potassium 4.1 mmol/L (3.5-5.1)
[2019-05-19 07:10] LABS: BUN/Creatinine Ratio 25.6
[2019-05-19 09:00] VITALS: BP 108/52
[2019-05-19] MEDS: methylPREDNISolone SOD SUCC 40 MG/ML VL IV SCH ×2 (09:50→22:41)
[2019-05-19] MEDS: PANTOPRAZOLE 40 MG TAB PO SCH (09:50)
[2019-05-19] MEDS: ASPirin 81 mg TAB PO SCH (09:50)
[2019-05-19 13:20] VITALS: BP 129/69
[2019-05-19 17:00] VITALS: BP 129/66
[2019-05-19 20:00] VITALS: BP 121/55
[2019-05-19 21:52] VITALS: BP 121/53
[2019-05-19] MEDS: MONTELUKAST SODIUM 10 MG TAB PO SCH (22:41)
[2019-05-19] MEDS: ATORVASTATIN 20 MG TAB PO SCH (22:41)
[2019-05-20] MEDS: PIPERACILLIN-TAZOB 3.375GM 100 ML IV SCH ×3 (00:05→12:46)
[2019-05-20] MEDS: ALBUTEROL SULF 2.5 MG/0.5ML(0.5%) NEB SOLN NEB SCH ×4 (01:14→18:00)
[2019-05-20] MEDS: IPRATROPIUM BROM 0.5 MG/2.5ML INH SOL NEB SCH ×4 (01:14→18:00)
[2019-05-20] MEDS: PROMETHAZINE W/CODEINE 5 ML ORAL SYRUP PO PRN (01:28)
[2019-05-20] MEDS: TEMAZEPAM 15 MG CAP PO PRN (01:28)
[2019-05-20 05:00] VITALS: BP 137/73
[2019-05-20] MEDS: GABAPENTIN 300 MG CAP PO SCH ×2 (06:14→12:46)
[2019-05-20] MEDS: InsuLIN REG 1unit/0.01ml Soln (100units/ml) SC SCH ×3 (06:15→17:27)
[2019-05-20] MEDS: LEVOTHYROXINE SODIUM 25 MCG TAB PO SCH (06:15)
[2019-05-20] MEDS: ACCU-CHEK COMFORT CURVE STRIP VI SCH ×3 (06:15→17:27)
[2019-05-20] MEDS: glipiZIDE 5 MG TAB PO SCH (06:15)
[2019-05-20] MEDS: INSULIN LANTUS (GLARGINE) 1 /0.01ml (100units/ml) SC SCH (06:16)
[2019-05-20] MEDS: BUDESONIDE (INHALATION) 0.5 MG/2 ML NEB NEB SCH (06:20)
[2019-05-20 06:59] LABS: Hematocrit 40.6 % (36.0-46.0); Hemoglobin 13.9 g/dL (12.2-16.2); Mean Corpuscular Hemoglobin 29.4 pg (28.0-32.0); Mean Corpuscular Hgb Conc. 34.2 g/dL (32.0-36.0); Mean Corpuscular Volume 86.2 fL (80.0-100.0); Platelet Count (auto) 131 10^3/uL (140-450); Red Blood Cells 4.71 10^6/uL (4.0-5.20); White Blood Cell 9.7 10^3/uL (4.4-10.8)
[2019-05-20 07:10] LABS: Basophils % (manual) 0 (0.0-2.0); Blast Cells 0; Eosinophils % (manual) 0 (0-7); Promyelocytes % 0; Reactive Lymphocytes 0
[2019-05-20 07:14] LABS: Albumin 2.7 g/dL (3.4-5.0); Calcium 8.6 mg/dL (8.5-10.1)
[2019-05-20 07:19] LABS: BUN/Creatinine Ratio 24.6; Bilirubin, Total 0.5 mg/dL (0.2-1.0); Total Protein 6.1 g/dL (6.4-8.2)
[2019-05-20 07:46] LABS: Band Neutrophils % (manual) 1; Lymphocytes % (manual) 8 (10.0-50.0); Metamyelocytes % 1; Monocytes % (manual) 5 (0-12); Myelocytes % 1
[2019-05-20 09:00] VITALS: BP 137/89
[2019-05-20] MEDS: methylPREDNISolone SOD SUCC 40 MG/ML VL IV SCH (09:31)
[2019-05-20] MEDS: PANTOPRAZOLE 40 MG TAB PO SCH (09:31)
[2019-05-20] MEDS: ASPirin 81 mg TAB PO SCH (09:32)
[2019-05-20 13:00] VITALS: BP 166/93
[2019-05-20 13:52] VITALS: BP 137/89
== END 2019-05-20 17:50 | disposition home or self-care (01) | DRG 141 ==
LOC: ER 16:26 → TELE 16:27 → TELE-EAST 05-12 08:19
PROVIDERS: ADMIT Nurse Practitioner; ATTEND Internal Medicine
DX: J45.902 Unspecified asthma with status asthmaticus (principal); J96.20 Acute and chronic respiratory failure, unspecified whether with hypoxia or hypercapnia; E44.0 Moderate protein-calorie malnutrition; N17.9 Acute kidney failure, unspecified; E11.22 Type 2 diabetes mellitus with diabetic chronic kidney disease; N18.3 Chronic kidney disease, stage 3 (moderate); E66.01 Morbid (severe) obesity due to excess calories; D72.829 Elevated white blood cell count, unspecified; E03.9 Hypothyroidism, unspecified; J44.9 Chronic obstructive pulmonary disease, unspecified; M54.9 Dorsalgia, unspecified; E86.0 Dehydration; G89.29 Other chronic pain; I12.9 Hypertensive chronic kidney disease with stage 1 through stage 4 chronic kidney disease, or unspecified chronic kidney disease; E11.65 Type 2 diabetes mellitus with hyperglycemia; Z80.3 Family history of malignant neoplasm of breast; Z90.49 Acquired absence of other specified parts of digestive tract; Z90.710 Acquired absence of both cervix and uterus; Z68.43 Body mass index [BMI] 50.0-59.9, adult
CPT/HCPCS: 36415; 36600; 71045; 71046; 76705; 78582; 80048; 80053; 80202; 81001; 82150; 82553; 82805; 82962; 83605; 83690; 83880; 84484; 85007; 85025; 85027; 85379; 85610; 85730; 87040; 87081; 87086; 87804; 93005; 94640; 96361; 96365; 99291; G0378; J1815; J2543

== ENCOUNTER → 2019-06-08 | Emergency (ER) | payer MEDICAID ==
[~2019-06-08] VITALS: Ht 165.1 cm; Wt 133.8 kg
[~2019-06-08] MED LIST changes: +SODIUM CHLORIDE 0.9% 1,000 ML IV ONE
[2019-06-08 16:39] LABS: Basophils # (auto) 0 10 ^3/uL (0-0.2); Basophils % (auto) 0.3 % (0.0-2.0); Eosinophils # (auto) 0.3 10 ^3/uL (0-0.8); Eosinophils % (auto) 3.8 % (0.0-7.0); Hematocrit 43.9 % (36.0-46.0); Hemoglobin 14.5 g/dL (12.2-16.2); Lymphocytes # (auto) 1.6 10 ^3/uL (0.4-5.4); Lymphocytes % (auto) 23.2 % (10.0-50.0); Mean Corpuscular Hemoglobin 28.5 pg (28.0-32.0); Mean Corpuscular Volume 86.4 fL (80.0-100.0); Monocytes # (auto) 0.6 10 ^3/uL (0-1.3); Monocytes % (auto) 9.4 % (0.0-12.0); Neutrophils # (auto) 4.3 10 ^3/uL (1.6-8.6); Neutrophils % (auto) 63.3 % (37.0-80.0); Nucleated Red Blood Cells % 0.2 %; Platelet Count (auto) 265 10^3/uL (140-450); Red Blood Cells 5.08 10^6/uL (4.0-5.20); Red Cell Distribution Width 16.2 % (11.8-14.3); White Blood Cell 6.8 10^3/uL (4.4-10.8)
[2019-06-08 16:56] LABS: Alanine Aminotransferase 40 U/L (13-56); Albumin 3.2 g/dL (3.4-5.0); Anion Gap 9 (5-15); Blood Urea Nitrogen 17 mg/dL (7-18); Calcium 9.6 mg/dL (8.5-10.1); Carbon Dioxide 31 mmol/L (21-32); Chloride 99 mmol/L (98-107); Glucose 398 mg/dL (74-106); Magnesium 1.4 mg/dL (1.6-2.6); Potassium 4.4 mmol/L (3.5-5.1); Sodium 139 mmol/L (136-145)
[2019-06-08 17:01] LABS: Alkaline Phosphatase 101 U/L (45-117); Aspartate Aminotransferase 22 U/L (15-37); BUN/Creatinine Ratio 11.3; Bilirubin, Total 0.8 mg/dL (0.2-1.0); GFR African American 45 mL/min; GFR Non-African American 37 mL/min
[2019-06-08 17:53] LABS: Urine WBC None Seen /hpf (0 - 5)
[2019-06-08 18:00] VITALS: BP 133/41
[2019-06-08 18:15] LABS: Urine Bacteria NONE SEEN /hpf (None Seen); Urine Blood Negative /uL (Negative); Urine Specific Gravity 1.015 (1.001-1.035)
== END | disposition home or self-care (01) ==
LOC: ER 15:27
DX: R42 Dizziness and giddiness (principal); E11.65 Type 2 diabetes mellitus with hyperglycemia; J45.909 Unspecified asthma, uncomplicated; E78.5 Hyperlipidemia, unspecified; I10 Essential (primary) hypertension; Z90.49 Acquired absence of other specified parts of digestive tract; Z90.710 Acquired absence of both cervix and uterus; Z90.89 Acquired absence of other organs; Z88.8 Allergy status to other drugs, medicaments and biological substances; Z79.82 Long term (current) use of aspirin; Z79.4 Long term (current) use of insulin; Z79.2 Long term (current) use of antibiotics; Z79.899 Other long term (current) drug therapy
CPT/HCPCS: 36415; 80053; 81001; 83735; 84484; 85025; 93005; 96360; 99284; J7030

== ENCOUNTER 2019-07-16 16:52 | Emergency (ER) | payer MEDICAID ==
[~2019-07-16] VITALS: Ht 165.1 cm; Wt 133.8 kg
[~2019-07-16 16:52] MED LIST changes: -SODIUM CHLORIDE 0.9% 1,000 ML IV ONE
[2019-07-16 17:02] VITALS: BP 135/68
== END 2019-07-16 17:54 | disposition home or self-care (01) ==
LOC: ER 16:52
DX: S90.851A Superficial foreign body, right foot, initial encounter (principal); Z79.899 Other long term (current) drug therapy; Z88.8 Allergy status to other drugs, medicaments and biological substances; X58.XXXA Exposure to other specified factors, initial encounter; Y93.89 Activity, other specified; Y92.89 Other specified places as the place of occurrence of the external cause; Y99.8 Other external cause status
CPT/HCPCS: 10120; 73620

== ENCOUNTER → 2019-09-13 | Emergency (ER) | payer MEDICAID ==
[~2019-09-13] VITALS: Ht 165.1 cm; Wt 133.8 kg
[~2019-09-13] MED LIST changes: -ASPI-404 PO; +ASPI-543 PO
[2019-09-13 16:29] LABS: Basophils # (auto) 0.1 10 ^3/uL (0-0.2); Basophils % (auto) 1.1 % (0.0-2.0); Eosinophils # (auto) 0.3 10 ^3/uL (0-0.8); Eosinophils % (auto) 4.5 % (0.0-7.0); Hematocrit 41.7 % (36.0-46.0); Hemoglobin 13.7 g/dL (12.2-16.2); Lymphocytes # (auto) 1.8 10 ^3/uL (0.4-5.4); Lymphocytes % (auto) 24.4 % (10.0-50.0); Mean Corpuscular Hemoglobin 28.3 pg (28.0-32.0); Mean Corpuscular Hgb Conc. 32.8 g/dL (32.0-36.0); Mean Corpuscular Volume 86.3 fL (80.0-100.0); Monocytes # (auto) 0.7 10 ^3/uL (0-1.3); Monocytes % (auto) 9.5 % (0.0-12.0); Neutrophils # (auto) 4.4 10 ^3/uL (1.6-8.6); Neutrophils % (auto) 60.5 % (37.0-80.0); Nucleated Red Blood Cells % 0.2 %; Platelet Count (auto) 194 10^3/uL (140-450); Red Blood Cells 4.83 10^6/uL (4.0-5.20); Red Cell Distribution Width 14.9 % (11.8-14.3); White Blood Cell 7.3 10^3/uL (4.4-10.8)
[2019-09-13 16:51] LABS: Albumin 3.4 g/dL (3.4-5.0); Anion Gap 7 (5-15); Blood Urea Nitrogen 22 mg/dL (7-18); Calcium 8.8 mg/dL (8.5-10.1); Carbon Dioxide 31 mmol/L (21-32); Chloride 100 mmol/L (98-107); Glucose 176 mg/dL (74-106); Potassium 3.9 mmol/L (3.5-5.1); Sodium 138 mmol/L (136-145)
[2019-09-13 17:00] LABS: Alanine Aminotransferase 30 U/L (13-56); Alkaline Phosphatase 94 U/L (45-117); Aspartate Aminotransferase 24 U/L (15-37); Bilirubin, Total 0.6 mg/dL (0.2-1.0); GFR African American 68 mL/min; GFR Non-African American 56 mL/min; Total Protein 7.2 g/dL (6.4-8.2)
[2019-09-14 02:00] VITALS: BP 122/67
== END | disposition home or self-care (01) ==
LOC: ER 14:21
DX: H53.2 Diplopia (principal); J45.909 Unspecified asthma, uncomplicated; E11.9 Type 2 diabetes mellitus without complications; E78.5 Hyperlipidemia, unspecified; I10 Essential (primary) hypertension; E07.9 Disorder of thyroid, unspecified; Z88.8 Allergy status to other drugs, medicaments and biological substances
CPT/HCPCS: 36415; 70450; 71046; 80053; 84484; 85025; 93005